=== PATIENT | male | born 1975 | race Caucasian/White ===

== ENCOUNTER → 2018-12-11 | Outpatient (CLI) | payer OTHER ==
[2016-08-04 10:40] VITALS: BP 169/97
[~2018-12-11] MED LIST: CYCL-331 PO; HYDR-3165 PO
--- NOTE | 2018-12-11 13:56 | RAD ---
PQRS Compliance Statement: One or more of the following individualized dose reduction techniques were utilized for this examination: 1. Automated exposure control 2. Adjustment of the mA and/or kV according to patient size 3. Use of iterative reconstruction technique CT ABDOMEN PELVIS WO CONTRAST Clinical Indication: BILATERAL FLANK PAIN WORSE ON LEFT, hematuria Comparison: None. Technique: Helical CT imaging of the abdomen and pelvis is performed without IV or oral contrast. Findings: Lung bases clear. Cardiac size normal. The liver, spleen, gallbladder, pancreas, adrenal glands, and abdominal aorta caliber are normal. The right kidney is normal. There is no renal calculus. There is mild left hydroureteronephrosis secondary to a 3 mm calculus at the ureterovesicular junction, image 135. Stomach is not well distended, limiting evaluation. Small fat-containing umbilical hernia. There is no dilated small bowel. The appendix is normal. Scattered stool in the colon. No colon wall thickening. There are a few diverticula of the sigmoid colon without inflammation. No abdominal adenopathy or free fluid. Urinary bladder is nearly completely decompressed, limiting evaluation. There are tiny fat-containing bilateral inguinal hernias. The prostate and seminal vesicles are normal. No pelvic free fluid. Bones unremarkable. IMPRESSION: 1. Mild left obstructive uropathy secondary to a 3 mm calculus at the ureterovesicular junction. 2. Minimal sigmoid colon diverticulosis without diverticulitis. Electronically signed by: Cash Escamilla MD (12/11/2018 1:51 PM) [id number]
== END | disposition home or self-care (01) ==
LOC: CT 13:17
PROVIDERS: ATTEND Registered Nurse
DX: N13.2 Hydronephrosis with renal and ureteral calculous obstruction (principal); K57.30 Diverticulosis of large intestine without perforation or abscess without bleeding; K40.20 Bilateral inguinal hernia, without obstruction or gangrene, not specified as recurrent
CPT/HCPCS: 74176